=== PATIENT | male | born 1945 | race Caucasian/White ===

== ENCOUNTER 2021-02-21 07:45 | Outpatient (CLI) | payer MEDICARE, BC ==
[2021-02-21] VITALS (8 sets, daily range): BP systolic 135–170; BP diastolic 77–87; PULSE 54–59; TEMP 97.7
[~2021-02-21] VITALS: Ht 177.8 cm; Wt 85.5 kg
[~2021-02-21 07:45] MED LIST: ASPIRIN 81M81 MG/TA2 PO; ELIQUIS 5MG PO; LIPITOR20 MG PO; LOPRESSOR 225 MG/TAB PO; PACERONE200 MG PO; TOPROL XL 25MG25 MG PO
[2021-02-21] MEDS ORDERED: ASPIRIN E.C. 8181 MG PO (08:03)
[2021-02-21] MEDS ORDERED: LIPITOR 40MG TA40 MG PO (08:04)
[2021-02-21] MEDS ORDERED: GLUCOPHAGE1000 MG PO (08:05)
[2021-02-21] MEDS ORDERED: ZESTRIL 10MG10 MG PO (08:06)
[2021-02-21 08:22] LABS: HEMATOCRIT 46.4 % (42.0-52.0); HEMOGLOBIN 14.7 g/dl (13.5-18.0); MEAN CELL VOLUME 90 fl (80.0-100.0); MEAN CORPUSCULAR HEMOGLOBIN 29 pg (27.0-31.0); MEAN CORPUSCULAR HGB CONC 32 g/dl (33.0-37.0); MEAN PLATELET VOLUME 10.3 fl (7.4-10.4); PLATELET COUNT 257 K/mm3 (130-400); RED BLOOD COUNT 5.16 M/mm3 (4.20-5.60); REDCELL DISTRIBUTION WIDTH-CV 14.4 % (11.5-14.5)
[2021-02-21 08:31] LABS: INR 1.5 (0.8-3.0); PROTHROMBIN TIME 16.1 SECONDS (9.7-12.8)
[2021-02-21 08:33] LABS: CALCIUM 9.4 mg/dL (8.4-10.2); CREATININE, serum 0.67 (0.66-1.25); POTASSIUM 3.9 mmol/L (3.4-5.0)
--- NOTE | 2021-02-21 10:15 | NUR ---
Report from Lorenza FONSECA. Dr. Ni unable to complete NEELAM and is consulting Dr. Rodas. VSS. Pt denies pain and needs at this time
--- NOTE | 2021-02-21 12:23 | NUR ---
INT discontinued intact. Discharge instructions given. Transferred to private car by clara
== END 2021-02-21 12:35 | disposition home or self-care (01) ==
LOC: COL.RAD 07:45
PROVIDERS: Internal Medicine Cardiovascular Disease
DX: I21.9 Acute myocardial infarction, unspecified (principal); I48.19 Other persistent atrial fibrillation; I44.30 Unspecified atrioventricular block; I50.20 Unspecified systolic (congestive) heart failure
CPT/HCPCS: J2704

== ENCOUNTER 2021-04-11 10:13 | Day surgery (SDC) | payer MEDICARE, BC ==
[~2021-04-11] VITALS: Ht 177.8 cm; Wt 83.8 kg
[~2021-04-11 10:13] MED LIST changes: +ASPIRIN E.C. 8181 MG PO; +GLUCOPHAGE1000 MG PO; +LIPITOR 40MG TA40 MG PO; +ZESTRIL 10MG10 MG PO
[2021-04-11 11:10] VITALS: BP 173/81; PULSE 87; TEMP 98.6
--- NOTE | 2021-04-11 12:11 | NUR ---
Initial visit; Patient and his thanked Costume Specialist for looking in on him and offering prayer prior to his 'procedure.'
[2021-04-11 12:15] VITALS: BP 137/75; PULSE 53; TEMP 98
--- NOTE | 2021-04-11 12:15 | NUR ---
TRANSPORTED BY CART FROM ENDOSCOPY SUITE TO DISCHARGE ROOM, ABLE TO STAND AND AMBULATE TO A RECLINER, MONITORS ON AND ALARMS SET. DENIES DISCOMFORT OR NAUSEA, ASKING FOR JUICE AND MUFFIN TO EAT. IV INFUSING W/O DIFFICULTY. SPOUSE PRESENT IN THE ROOM, ALERT AND ORIENTED X3.
[2021-04-11 12:30] VITALS: BP 138/74; PULSE 51
--- NOTE | 2021-04-11 12:30 | NUR ---
DR SEAY HERE TO SPEAK TO PATIENT ABOUT PROCEDURE, TOLERATED FOOD AND FLUIDS WELL
[2021-04-11 12:45] VITALS: BP 140/67; PULSE 52
--- NOTE | 2021-04-11 12:45 | NUR ---
IV DC'D IN RIGHT FOREARM, GAUZE DRESSING AND COBAN APPLIED TO SITE, ABLE TO DRESS HIMSELF, DISCHARGE INSTRUCTIONS REVIEWED AND A COPY SENT W/ PATIENT. SPOUSE SENT TO OUT TO BRING THE VEHICLE BY OUTPATIENT ENTERENCE.
== END 2021-04-11 12:59 ==
LOC: SDCO 10:13
DX: K44.9 Diaphragmatic hernia without obstruction or gangrene (principal); K22.8 Other specified diseases of esophagus; I25.10 Atherosclerotic heart disease of native coronary artery without angina pectoris; I50.9 Heart failure, unspecified; I11.0 Hypertensive heart disease with heart failure; E11.9 Type 2 diabetes mellitus without complications; I48.91 Unspecified atrial fibrillation; M47.897 Other spondylosis, lumbosacral region; G47.33 Obstructive sleep apnea (adult) (pediatric); Z20.822 Contact with and (suspected) exposure to COVID-19; Z95.1 Presence of aortocoronary bypass graft; Z79.01 Long term (current) use of anticoagulants; Z79.899 Other long term (current) drug therapy; Z79.82 Long term (current) use of aspirin; Z79.84 Long term (current) use of oral hypoglycemic drugs
CPT/HCPCS: J2704; J7030

== ENCOUNTER 2021-06-13 07:48 | Outpatient (CLI) | payer MEDICARE, BC ==
--- NOTE | 2021-06-06 10:20 | NUR ---
PT WAS CALLED AND GIVEN INFORMATION ON COVID TESTING.
[~2021-06-13] VITALS: Ht 177.8 cm; Wt 82.4 kg
[2021-06-13 08:38] LABS: HEMATOCRIT 44.9 % (42.0-52.0); HEMOGLOBIN 15.2 g/dl (13.5-18.0); MEAN CELL VOLUME 91 fl (80.0-100.0); MEAN CORPUSCULAR HEMOGLOBIN 31 pg (27.0-31.0); MEAN CORPUSCULAR HGB CONC 34 g/dl (33.0-37.0); MEAN PLATELET VOLUME 10.2 fl (7.4-10.4); PLATELET COUNT 241 K/mm3 (130-400); RED BLOOD COUNT 4.95 M/mm3 (4.20-5.60); REDCELL DISTRIBUTION WIDTH-CV 14.7 % (11.5-14.5)
[2021-06-13] MEDS ORDERED: NEURONTIN100 MG/CAP PO (08:38)
[2021-06-13 08:40] VITALS: BP 163/94; PULSE 61; TEMP 98.5
[2021-06-13 08:48] LABS: CALCIUM 9.7 mg/dL (8.4-10.2); CREATININE, serum 0.77 (0.66-1.25); POTASSIUM 4.4 mmol/L (3.4-5.0)
[2021-06-13 08:55] LABS: INR 1.4 (0.8-3.0); PROTHROMBIN TIME 15.2 SECONDS (9.7-12.8)
[2021-06-13] MEDS ORDERED: LOPRESSOR 225 MG/TAB PO (09:17)
[2021-06-13 10:30] VITALS: BP 135/74; PULSE 58
[2021-06-13 10:45] VITALS: BP 132/75; PULSE 58
[2021-06-13 11:00] VITALS: BP 138/78; PULSE 58
[2021-06-13 11:15] VITALS: BP 149/74; PULSE 60
--- NOTE | 2021-06-13 11:35 | NUR ---
DC instructions reviewed with pt and . Both express understanding. Pt is steady on feet in room. He has tolerated fluids without issue. Refused solid food prior to discharge, stating they will go out to eat. INT DC'd with catheter intact. He is assisted out by wheelchair to 's car.
== END 2021-06-13 12:00 | disposition home or self-care (01) ==
LOC: COL.RAD 07:48
PROVIDERS: Internal Medicine Cardiovascular Disease
DX: I77.810 Thoracic aortic ectasia (principal); I48.19 Other persistent atrial fibrillation
CPT/HCPCS: J2704